=== PATIENT | male | born 1945 | race Caucasian/White ===

== ENCOUNTER → 2017-02-14 | Outpatient (CLI) | payer BC | END | disposition home or self-care (01) | LOC: C.PATHSPEC 17:44 | PROVIDERS: ATTEND Dentist Oral and Maxillofacial Pathology | DX: L43.9 Lichen planus, unspecified (principal) ==

== ENCOUNTER 2017-06-08 12:18 | Emergency (ER) | payer BC ==
[~2017-06-08] VITALS: Ht 182.9 cm; Wt 75.3 kg
[2017-06-08 12:20] VITALS: TEMP 36.3; Ht 182.9 cm; Wt 75.3 kg
[2017-06-08] MEDS ORDERED: TRIA0.1P3 PO (12:56)
[2017-06-08] MEDS ORDERED: MULT-190 PO (12:56)
[2017-06-08] MEDS ORDERED: DOXY100C76 PO (12:56)
[2017-06-08] MEDS ORDERED: [UNRECOGNIZED DRUG - OTHER] PO (12:56)
[2017-06-08] MEDS ORDERED: CHLO1SOL OR (12:56)
[2017-06-08] MEDS ORDERED: B-COTAB18 PO (12:56)
[2017-06-08 13:17] LABS: BASO % 0.6 %; BASO ABS # 0.04 K/uL (0-0.2); COMPLETE YES; EOS % 1.4 %; HEMATOCRIT 43.2 % (42-52); IG% 0.2 %; LYMPH % 28.1 %; LYMPH ABS # 1.85 K/uL (1.2-3.4); MEAN CELL VOLUME 91.3 fL (80-100); MEAN CORPUSCULAR HEMOGLOBIN 32.3 pg (25-34); MEAN CORPUSCULAR HGB CONC 35.4 g/dl (32-36); MONO % 10.2 %; NEUT % 59.5 %; PLATELET COUNT 179 K/uL (130-400); RED BLOOD COUNT 4.73 M/uL (4.7-6.1); WHITE BLOOD COUNT 6.59 K/uL (4.8-10.8)
--- NOTE | 2017-06-08 13:34 | DIAGNOSTIC IMAGING REPORT ---
CHEST 2 VIEWS ROUTINE HISTORY: diaphoretic, shaking COMPARISON: None. FINDINGS: No focal lung consolidations to suggest pneumonia. No evidence for pulmonary edema. No pleural effusions. No pneumothorax. The heart is normal in size. Moderate hiatus hernia IMPRESSION: No acute process within the chest. Moderate hiatus hernia. Electronically signed by: Mitul Dhaliwal M.D. 06/08/2017 1:33 PM Dictated Date/Time: 06/08/2017 1:31 PM
[2017-06-08 13:48] LABS: MANUAL MICROSCOPIC REQUIRED? NO; REVIEW REQ? NO; URINE APPEARANCE CLEAR (CLEAR); URINE BILIRUBIN NEG (NEG); URINE COLOR YELLOW; URINE NITRITE NEG (NEG); URINE SPECIFIC GRAVITY 1.011 (1.000-1.030); UROBILINOGEN NEG (NEG)
[2017-06-08 13:51] LABS: ALT/SGPT 25 U/L (12-78); BLOOD UREA NITROGEN 14 mg/dl (7-18); BUN/CREATININE RATIO 14.1 (10-20); CALCIUM 8.9 mg/dl (8.5-10.1); CARBON DIOXIDE 24 mmol/L (21-32); CHLORIDE 108 mmol/L (98-107); CREATININE 0.96 mg/dl (0.60-1.40); GLUCOSE 81 mg/dl (70-99); SODIUM 139 mmol/L (136-145)
[2017-06-08 13:56] LABS: ALB/GLOB RATIO 1.2 (0.9-2); ALKALINE PHOSPHATASE 78 U/L (45-117)
[2017-06-08 14:19] LABS: POTASSIUM 3.4 mmol/L (3.5-5.1)
[2017-06-08 14:38] VITALS: BP 125/74; PULSE 50; O2SAT 99
--- NOTE | 2017-06-08 20:21 | EMERGENCY ROOM VISIT NOTE ---
History First contact with patient: 12:27 Chief Complaint: OTHER COMPLAINT Stated Complaint: COLD SWEATS History of Present Illness The patient is a 71 year old white male who presents to the Emergency Room with complaints of cold sweats, shakes, and pallor that occurred earlier today. He was sitting at his computer typing at the time. States there was no chest pain or shortness of breath. He just began sweating, became chilled, and then had tremors. He does not think he usually has significant shakes or tremors. His states that he looked very pale. She insisted he come to the ED for evaluation. The pallor and sweats have resolved. He continues to have tremors. No prior history of similar symptoms. He states he has been in good health until about a year ago. He had an extensive workup for oral pain and was diagnosed with lichen planus. No nausea or vomiting today. He denies any recent long automobile rides or airplane trips. No calf pain. No back pain. He does not believe he is dehydrated. He did have or juice and cookies for breakfast this morning. No history of diabetes. No change in vision or speech. He denies any extremity weakness. Review of Systems REVIEW OF SYSTEM: HEENT: No dizziness, visual problems, hearing loss, or tinnitus. There is no difficulty swallowing. LYMPH: No adenopathy. PULMONARY: No cough, shortness of breath, sputum production or hemoptysis. CARDIOVASCULAR: No chest pain, palpitations, shortness of breath or peripheral edema. GASTROINTESTINAL: No diarrhea, constipation, nausea, vomiting, or abdominal pain. GENITOURINARY: No dysuria, frequency, urgency or nocturia. NEUROLOGIC: No weakness, muscle tenderness, epilepsy or history of neurological problems. No history of chronic headaches. MUSCULOSKELETAL: No history of joint tenderness/swelling. No history of arthritis or arthralgias. SKIN: No rashes or lesions. PSYCHIATRIC: No history of depression or mental illness. ENDOCRINE: No history of diabetes, thyroid disorders, or abnormal hair growth. Past Medical/Surgical History Previous surgeries: None Medical history: Significant for lichen planus. Family History Noncontributory. Social History Smoking Status: Never Smoker Smokeless Tobacco Use: No Alcohol Use: occasionally Drug Use: none Marital Status: Housing Status: lives with family Occupation Status: retired Current/Historical Medications Scheduled B-Complex Vitamins (Vitamin B Complex), 1 TAB PO DAILY Chlorhexidine Gluconate (Bulk) (Chlorhexidine Gluconate), 1 DOSE OR BID Dexamethasone (Dexamethasone), 0.5 MG PO BID Doxycycline Monohydrate (Monodox), 100 MG PO DAILY Ocuvite Preservision (Ocuvite Preservision), 1 TAB PO DAILY Physical Exam Vital Signs Date Time Temp Pulse Resp B/P (MAP) Pulse Ox O2 Delivery O2 Flow Rate FiO2 06/08/17 14:38 50 16 125/74 99 Room Air 06/08/17 12:20 36.3 61 18 163/77 100 Room Air Physical Exam Gen.: Well-developed, well-nourished, elderly white male, in no acute distress. Sitting on a bed. Alert and oriented. Currently has tremors as though he is cold, but denies being cold. Skin:Warm and dry with good turgor. No rashes or lesions. No ecchymosis or erythema. The patient is not diaphoretic. No abrasions. HEENT: Normocephalic atraumatic. Eyes PERRLA, EOMI. No conjunctiva or scleral injection. Wearing glasses. Ears TMs intact bilaterally with good light reflexes. No erythema or bulging. No hemotympanum. Canals are patent. Nares patent bilaterally without turbinate enlargement. No significant drainage. No epistaxis. Oropharynx without erythema or exudate. Uvula midline, oral mucosa moist. No lesions present. Heart: Heart RRR. No MGR. Peripheral pulses are 2+. Lungs: Lungs are clear to auscultation. No crackles rhonchi or wheezing. Good air movement. The patient is able to take a deep breath. Abdomen: Abdomen was inspected, auscultated, and palpated. Bowel sounds present x 4. Soft, nontender to palpation. No hepato-splenomegaly. No masses noted. Musculoskeletal: Gross motor function of the upper and lower extremities is intact and unremarkable. Neurologic: Gross sensation is intact across the upper and lower extremities by soft touch. Medical Decision & Procedures ER Provider Diagnostic Interpretation: EKG obtained today shows a sinus bradycardia with a rate of 56. No acute ST or T-wave changes are present. Chest x-ray obtained today was read by radiology as unremarkable for any acute changes. Laboratory Results 06/08/17 13:05 Red Blood Count 4.73, Mean Corpuscular Volume 91.3, Mean Corpuscular Hemoglobin 32.3, Mean Corpuscular Hemoglobin Concent 35.4, Mean Platelet Volume 9.0, Neutrophils (%) (Auto) 59.5, Lymphocytes (%) (Auto) 28.1, Monocytes (%) (Auto) 10.2, Eosinophils (%) (Auto) 1.4, Basophils (%) (Auto) 0.6, Neutrophils # (Auto ) 3.93, Lymphocytes # (Auto) 1.85, Monocytes # (Auto) 0.67, Eosinophils # (Auto ) 0.09, Basophils # (Auto) 0.04 06/08/17 13:05 06/08/17 14:00 Test 06/08/17 13:05 06/08/17 13:25 06/08/17 14:00 White Blood Count 6.59 K/uL (4.8-10.8) Red Blood Count 4.73 M/uL (4.7-6.1) Hemoglobin 15.3 g/dL (14.0-18.0) Hematocrit 43.2 % (42-52) Mean Corpuscular Volume 91.3 fL (80-100) Mean Corpuscular Hemoglobin 32.3 pg (25-34) Mean Corpuscular Hemoglobin Concent 35.4 g/dl (32-36) Platelet Count 179 K/uL (130-400) Mean Platelet Volume 9.0 fL (7.4-10.4) Neutrophils (%) (Auto) 59.5 % Lymphocytes (%) (Auto) 28.1 % Monocytes (%) (Auto) 10.2 % Eosinophils (%) (Auto) 1.4 % Basophils (%) (Auto) 0.6 % Neutrophils # (Auto) 3.93 K/uL (1.4-6.5) Lymphocytes # (Auto) 1.85 K/uL (1.2-3.4) Monocytes # (Auto) 0.67 K/uL (0.11-0.59) Eosinophils # (Auto) 0.09 K/uL (0-0.5) Basophils # (Auto) 0.04 K/uL (0-0.2) RDW Standard Deviation 43.0 fL (36.4-46.3) RDW Coefficient of Variation 12.8 % (11.5-14.5) Immature Granulocyte % (Auto) 0.2 % Immature Granulocyte # (Auto) 0.01 K/uL (0.00-0.02) Anion Gap 7.0 mmol/L (3-11) Est Creatinine Clear Calc Drug Dose 77.3 ml/min Estimated GFR () 93.1 Estimated GFR (Non- 80.3 BUN/Creatinine Ratio 14.1 (10-20) Calcium Level 8.9 mg/dl (8.5-10.1) Total Bilirubin 0.6 mg/dl (0.2-1) Alanine Aminotransferase (ALT/SGPT) 25 U/L (12-78) Alkaline Phosphatase 78 U/L (45-117) Creatine Kinase MB 1.3 ng/ml (0.5-3.6) Creatine Kinase MB Ratio (0-3.0) Troponin I < 0.015 ng/ml (0-0.045) Total Protein 6.8 gm/dl (6.4-8.2) Albumin 3.7 gm/dl (3.4-5.0) Globulin 3.1 gm/dl (2.5-4.0) Albumin/Globulin Ratio 1.2 (0.9-2) Thyroid Stimulating Hormone (TSH) 2.910 uIu/ml (0.300-4.500) Urine Color YELLOW Urine Appearance CLEAR (CLEAR) Urine pH 6.0 (4.5-7.5) Urine Specific [place] 1.011 (1.000-1.030) Urine Protein NEG (NEG) Urine Glucose (UA) NEG (NEG) Urine Ketones NEG (NEG) Urine Occult Blood NEG (NEG) Urine Nitrite NEG (NEG) Urine Bilirubin NEG (NEG) Urine Urobilinogen NEG (NEG) Urine Leukocyte Esterase NEG (NEG) Aspartate Amino Transf (AST/SGOT) 16 U/L (15-37) Total Creatine Kinase 28 U/L (39-308) CBC, chem panel, UA, CK/CK-MB, troponin, and TSH level were obtained. They are all unremarkable. ED Course Patient has were educated regarding today's findings. Conservative care measures were discussed. IV was established. Labs were obtained. EKG and chest x-ray were also obtained. All of his studies are normal. He had no further episodes while in the ED. Shaking resolved. Possibility of influenza was discussed. He is afebrile and currently has no symptoms. He will return for a nasal swab if symptoms recur. He should also return for any shortness of breath, chest pain, or back pain. His is aware. Maintain hydration. Follow up with his PCP as needed. Care plan was discussed with Dr. Louis. Medical Decision Possibility of pneumonia, pulmonary source, influenza, cardiac source, electrolyte abnormality, hypo-glycemia, hyperglycemia, dehydration, common cold , and sepsis were considered among others. [place] Drug Monitoring Program Search Results: no issues identified Medication Reconcilliation Current Medication List: was personally reviewed by me Blood Pressure Screening Patient's blood pressure: Normal blood pressure Impression Primary Impression: Shaking chills Departure Information Referrals Tarsha LUNA M.D. (PCP) Patient Instructions My [facility]
== END 2017-06-08 14:53 | disposition home or self-care (01) ==
LOC: C.EDB 12:19 → C.EDA 14:53
DX: R68.83 Chills (without fever) (principal); R25.1 Tremor, unspecified

== ENCOUNTER → 2017-09-09 | Outpatient (CLI) | payer BC ==
[~2017-09-09] MED LIST: B-COTAB18 PO; CHLO1SOL OR; DOXY100C76 PO; MULT-190 PO; [UNRECOGNIZED DRUG - OTHER] PO
--- NOTE | 2017-09-09 07:25 | DIAGNOSTIC IMAGING REPORT ---
MRI OF THE BRAIN WITHOUT CONTRAST CLINICAL HISTORY: FATIGUE, TREMOR UNSPECIFIED, WEAKNESS COMPARISON STUDY: None. TECHNIQUE: Utilizing a 1.5 Hafsa magnet and dedicated coil, multiplanar, multiecho imaging of the brain was performed without IV contrast. FINDINGS: There are no foci of restricted diffusion. No acute intracranial hemorrhage, midline shift or mass effect is present. Brain volume is normal for age. Ventricular system is normal. Basilar cisterns are patent. There are no extra-axial collections. Flow-voids for the major intracranial vessels are present. There is no intracranial masses identified on this unenhanced exam. A few small white matter T2 hyperintense foci suggest minimal small vessel disease. A few small left maxillary sinus mucous retention cysts are incidentally noted. Flow-voids for the major intracranial vessels are present. Calvarial signal is maintained. IMPRESSION: 1. No acute intracranial findings. Unremarkable unenhanced MRI of the brain for age. 2. Several punctate white matter T2 hyperintense foci which suggest minimal small vessel disease. Electronically signed by: Darryn Correia M.D. 09/09/2017 7:24 AM Dictated Date/Time: 09/09/2017 7:20 AM
== END | disposition home or self-care (01) ==
LOC: C.MRIBC 06:33
PROVIDERS: ATTEND Family Medicine
DX: R53.83 Other fatigue (principal); R25.1 Tremor, unspecified; R53.1 Weakness

== ENCOUNTER → 2017-10-07 | Outpatient (CLI) | payer BC ==
--- NOTE | 2017-10-07 11:01 | DIAGNOSTIC IMAGING REPORT ---
NECK ULTRASONOGRAPHY CLINICAL HISTORY: R22.1 bilateral neck swelling COMPARISON STUDY: No previous studies for comparison. FINDINGS: Ultrasonographic evaluation of the neck in the areas of clinical concern reveal no pathologic masses. If a pathologic mass is palpated on reexamination, then additional imaging such as a CT scan could be obtained in follow-up. IMPRESSION: No pathologic masses are visualized ultrasonographically. Electronically signed by: Clemente Hare M.D. 10/07/2017 11:00 AM Dictated Date/Time: 10/07/2017 10:58 AM
== END | disposition home or self-care (01) ==
LOC: C.ULTR 10:23
PROVIDERS: ATTEND Family Medicine
DX: R22.1 Localized swelling, mass and lump, neck (principal)